=== PATIENT | male | born 1960 | race Caucasian/White ===

== ENCOUNTER 2016-12-17 12:00 | Emergency (ER) | payer BC ==
[2016-12-17 12:48] VITALS: BP 155/89
--- NOTE | 2016-12-17 13:44 | UC ---
Jesika Heredia Auryana, [facility] 12/17/16 at 1340 . Skin Complaint HPI - HPI Summary HPI Summary: IN ROOM NOTE: 56 year old male presents with rash that started back in August worse since 2 days ago. He reports intermittent episodes - improved while in [place]. 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 He also reports that he has increased discharge in the mornings with burning and itching eyes. He denies any fever, chills, or any other complaints. He denies any treatment prior to arrival. PMHx is significant for chronic RUQ abdominal pain and fatty liver. No family history of skin issues, cancer, or DM. He currently works at [employer]. Dr. Sykes is his PCP. NOTE: Vital signs stable. Afebrile. pulse ox 100. NURSE NOTE: rash near both eyes; pt has had this on and off since August. it seems to last a couple days, then go away; eyes are also burning - History of Current Complaint Chief Complaint: UCSkin Time Seen by Provider: 12/17/16 13:15 Stated Complaint: RASH NEAR EYES Hx Obtained From: Patient Onset/Duration: Gradual Onset - started in august with intermittent flare ups , Still Present Timing: Intermittent Episodes Lasting: - usually shortly Onset Severity: Moderate Current Severity: Moderate Location: Discrete - above both eye lids and across the nasal bridge Character: Pruritus, Redness Aggravating: Other - unknown Associated Signs & Symptoms: Positive: Rash - erythema, ithcing and burning eyes Similar Episode/Dx as: see HPI - Allergy/Home Medications Allergies/Adverse Reactions: Allergies Allergy/AdvReac Type Severity Reaction Status Date / Time No Known Allergies Allergy Verified 11/23/16 07:42 Review of Systems Constitutional: Negative Skin: Rash - with erythema, burning and itching Eyes: Negative ENT: Negative Respiratory: Negative Cardiovascular: Negative Gastrointestinal: Negative Genitourinary: Negative Motor: Negative Neurovascular: Negative Musculoskeletal: Negative Neurological: Negative Psychological: Negative All Other Systems Reviewed And Are Negative: Yes PMH/Surg Hx/FS Hx/Imm Hx Endocrine History Of: Denies: Diabetes, Thyroid Disease Cardiovascular History Of: Denies: Cardiac Disorders, Hypertension, Pacemaker/ICD Respiratory History Of: Denies: COPD, Asthma GI/ History Of: Denies: Ulcer, Renal Disease - Surgical History Surgical History: Yes Surgery Procedure, Year, and Place: left shoulder reconstruction - Family History Known Family History: Positive: Other - no history of DDX: contact derm, subect derm, rosaea, dicussed as w - Social History Occupation: Employed Full-time Lives: Alone Alcohol Use: Weekly Alcohol Amount: 2-3 DRINKS/DAY Substance Use Type: None Smoking Status (MU): Former Smoker Type: Cigarettes Amount Used/How Often: less then 1ppd 10 YRS Have You Smoked in the Last Year: No When Did the Patient Quit Smoking/Using Tobacco: 2011 Physical Exam Triage Information Reviewed: Yes Appearance: Well-Appearing, No Pain Distress, Well-Nourished Vital Signs: Initial Vital Signs Temp 98.0 F 12/17/16 12:38 Pulse 85 12/17/16 12:38 Resp 16 12/17/16 12:38 BP 155/89 12/17/16 12:38 Pulse Ox 100 12/17/16 12:38 Vital Signs Reviewed: Yes Eyes: Positive: Conjunctiva Clear ENT: Positive: Hearing grossly normal, Pharynx normal, TMs normal Neck: Positive: Supple, Nontender, No Lymphadenopathy Respiratory: Positive: Chest non-tender, Lungs clear, Normal breath sounds, No respiratory distress Cardiovascular: Positive: RRR, No Murmur Abdomen Description: Positive: Nontender, No Organomegaly, Soft Bowel Sounds: Positive: Present Musculoskeletal: Positive: Strength Intact, Other: - FOURNIER Neurological: Positive: Alert Psychological: Positive: Age Appropriate Behavior Skin: Positive: rashes - ERYTHEMATOUS RASH OVER THE BRIDGE OF HIS NOSE AND BILATERAL ON THE BRIDGE OF THE ZYGOMA. ERYTHEMA WITH FLAKING AND SWELLING OVER THE UPPER EYE LIDS Course/Dx - Course Course Of Treatment: Discussed with patient the various possibilities of diagnosis. We agreed on trying sulfa shampoo and a short course of lotrisone cream. Follow up with PCP if rash does not improve. Patient is Urgent/ Emergent. BP elevated due to current condition w/o HTN in PMH. Medications have been included in the original chart and reviewed. - Differential Diagnoses - Skin Complaint Differential Diagnoses: Contact Dermatitis, Other - Rosacea, atopical dermatitis , Sebhorric dermatitis - Diagnoses Provider Diagnoses: Rosacea? contact dermatitis? Sebhorriec dermatitis? Discharge - Discharge Plan Condition: Stable Disposition: HOME Prescriptions: Clotrimazole/Betamethasone* [Lotrisone Cream*] 1 applic TOPICAL BID #30 tube MDD twice a day Patient Education Materials: Rosacea (ED), Dermatitis (ED) Referrals: Brett Sykes MD [Primary Care Provider] - Additional Instructions: WE DISCUSSED: Your rash is probably seborrheic dermatitis although it could also be a contact dermatitis. Less like is rosacea. I've given you some information. Begin Lotrisone, twice a day to area for five days only. It's not good to use this strong a steriod on the skin for too long. Use a Selsun like shampoo on your eyelashes. Follow up with dermatology for continued rash. Call if any questions or concerns. The documentation as recorded by the Jesika beasley Auryana accurately reflects the service I personally performed and the decisions made by me, Romero Vera MD.
== END 2016-12-17 13:45 | disposition home or self-care (01) ==
LOC: UCEAST 12:00
DX: R21 Rash and other nonspecific skin eruption (principal); R03.0 Elevated blood-pressure reading, without diagnosis of hypertension; Z87.891 Personal history of nicotine dependence
CPT/HCPCS: 99212; G0463